=== PATIENT | male | born 1975 | race Caucasian/White ===

== ENCOUNTER → 2020-06-05 15:21 | Outpatient (BNVA) | payer SELFPAY | PROVIDERS: Visit Provider Nurse Practitioner Family | DX: L01.00 Impetigo, unspecified (principal); L23.7 Allergic contact dermatitis due to plants, except food | CPT/HCPCS: 87070; 87077; 87186 ==

== ENCOUNTER 2024-05-08 14:36 | Outpatient (CLI) | payer SELFPAY ==
--- NOTE | 2024-05-08 14:42 | XR_ITS ---
WS: [id number] XR hip LT 2-3V wo/w pel* [id number] REASON FOR EXAM: Left hip pain FINDINGS: No acute fracture or focal bone lesion. Old healed fracture of the left superior and inferior pubic r amus. Plate and femoral neck nail and screw fixation of remote intertrochanteric fracture. Significant deformity of the femoral head and neck. There is essentially upap-ma-qjnl articulation in the superior hip joint with extensive sclerosis and cystic change in the acetabulum and femoral head. Large osteophytes of the femoral head. No soft tissue abnormality. XR/XR hip LT 2-3V wo/w pel* [id number] IMPRESSION: Remote intertrochanteric fracture with fixation Severe osteoarthritis of the left hip with [id number] articulation.
== END 2024-05-08 14:37 | disposition home or self-care (01) ==
PROVIDERS: Visit Provider Nurse Practitioner Family
DX: M16.0 Bilateral primary osteoarthritis of hip (principal); Z96.698 Presence of other orthopedic joint implants
CPT/HCPCS: 73502

== ENCOUNTER → 2024-05-21 13:56 | Outpatient (BNVA) | payer SELFPAY | PROVIDERS: Visit Provider Nurse Practitioner | DX: S72.002D Fracture of unspecified part of neck of left femur, subsequent encounter for closed fracture with routine healing (principal); X58.XXXD Exposure to other specified factors, subsequent encounter; M16.12 Unilateral primary osteoarthritis, left hip; M85.652 Other cyst of bone, left thigh; M25.752 Osteophyte, left hip | CPT/HCPCS: 73502 ==

== ENCOUNTER → 2024-05-30 09:35 | Outpatient (BNVA) | payer BC, MEDICAID, SELFPAY | PROVIDERS: Visit Provider Family Medicine | DX: Z01.818 Encounter for other preprocedural examination (principal) | CPT/HCPCS: 80053; 81003; 85025 ==

== ENCOUNTER 2024-06-05 13:21 | Observation (INO) | payer BC, MEDICAID, SELFPAY ==
[2024-06-05] VITALS (13 sets, daily range): BP systolic 116–152; BP diastolic 83–100; PULSE 95–116; RESP 16–18; TEMP 35.8–36.7; O2SAT 90–98; BMI 30.8
--- NOTE | 2024-06-05 06:41 | P.ANESASSM_ITS ---
Pre-Anesthetic Assessment Height/Weight: Height 1.78 m Weight 97.522 kg Operation Date: 06/05/24 08:15 Proposed Procedures p Hip Arthroplasty Revision Total Hip Arthroplasty Revision(Left) - Candice Marcus MD s Hardware Removal Hip Screw and plate(Left) - Candice Marcus MD Familial anesthetic complications: None Was Beta Renata taken within 24 hours: N/A Was Clonidine taken within 24 hours: N/A Last intake: > 8 hrs Social No alcohol and No tobacco Exam alert, oriented x 3, clear to auscultation bilaterally and regular rate & rhythm Airway Mallampati: Class II Dentition: other (some pulled) CV/HEM denies CP, SOB, MARTINEZ, syncope States able to achieve > 4 METS w/ out cardiac symptoms Anesthetic Plan ASA status: 2 Anesthesia: Regional (specify below) Risk of > 500 ml blood loss (7ml/kg in children): No Medications/Allergies Home Medications Medication Instructions Recorded Confirmed Last Taken Type No Known Home Medications 06/01/24 06/01/24 Unknown History Allergies Allergy/AdvReac Type Severity Reaction Status Date / Time No Known Allergies Allergy Verified 05/30/24 09:26 [facility] Anesthesia Medical History Avascular necrosis of bone of left hip Fracture of femoral neck, left, closed Patient underwent open reduction internal fixation in his mid 20s with 3 cannulated screw placement. Patient states that this did not heal well and when he was approximately 28 years old cannulated screws were removed and Synthes blade plate and screws were placed. Post-traumatic osteoarthritis of left hip Social History Smoking and tobacco/nicotine status: never used tobacco/nicotine Alcohol intake: never Substance/Drug Use: current Substance/Drug use frequency: few times a week Data Anesthesia Cardiac Studies: No Data to Display
[2024-06-05] MEDS: sodium chloride 0.9% 1,000 ML 30 ML IV (06:53)
[2024-06-05] MEDS: ondansetron 2 mg/ML SDV 2 mL 4 MG IVP (06:55)
[2024-06-05] MEDS: acetaminophen 1,000 MG/100 ML PIGGYBACK 400 MG IV ×3 (06:57→22:47)
[2024-06-05] MEDS: CELEcoxib 200 mg Capsule 400 MG PO (07:02)
[2024-06-05] MEDS: gabapentin 300 mg Capsule PO (07:02)
--- NOTE | 2024-06-05 07:02 | P.HPUD_ITS ---
Surgery/Procedure H&P Update DATE OF PROCEDURE: June 05, 2024 DATE H&P PERFORMED: 05/30/24 H&P UPDATE INFORMATION: I have reviewed H&P completed within last 30 days, I have examined patient prior to procedure, No changes to prior documentation and H&P is in [facility] EMR on date indicated PLANNED PROCEDURE: Operation Date: 06/05/24 08:15 Proposed Procedures p Hip Arthroplasty Revision Total Hip Arthroplasty Revision(Left) - Candice Marcus MD s Hardware Removal Hip Screw and plate(Left) - Candice Marcus MD Related Problem List Diagnoses (1) Fracture of femoral neck, left, closed: Qualifiers: Encounter type: sequela Qualified Code(s): S72.002S - Fracture of unspecified part of neck of left femur, sequela (2) Avascular necrosis of bone of left hip: (3) Post-traumatic osteoarthritis of left hip:
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
[2024-06-05] MEDS: ceFAZolin 2,000 mg SDV 2000 MG IVP ×3 (09:15→22:44)
[2024-06-05] MEDS: tranexamic acid 1,000 mg/10mL SDV 1000 MG IV (09:45)
[2024-06-05] MEDS: ceFAZolin 1,000 mg SDV 1000 MG IRRIGATION (10:00)
[2024-06-05] MEDS: vancomycin 1,000 MG SDV 1000 MG XX (10:00)
--- NOTE | 2024-06-05 13:39 | XRR_ITS ---
PROCEDURE INFORMATION: Exam: XR Pelvis Exam date and time: 06/05/2024 1:43 PM Age: 49 years old Clinical indication: Device placement; Other: Katelyn; Prior surgery; Surgery date: Post-operative (0-2 days); Additional info: S/P katelyn, low ap pelvis TECHNIQUE: Imaging protocol: Radiologic exam of the pelvis. Views: 1 or 2 view. COMPARISON: CR XR hip LT 2-3V wo/w pel* [id number] 05/21/2024 2:03 PM FINDINGS: Bones/joints: Complete left hip arthroplasty in adequate anatomic alignment. No evidence of hardware complications. Specifically, no evidence for hardware loosening or periprosthetic fractures. Mild osteoarthritis of the right hip joint. No acutely displaced fractures. No joint dislocation. No aggressive osseous lesions. Soft tissues: Soft tissue swelling and soft tissue emphysema. XR/XR pelvis 1-2V* [id number] IMPRESSION: 1. Complete left hip arthroplasty in adequate anatomic alignment. 2. Expected postsurgical soft tissue changes.
--- NOTE | 2024-06-05 13:49 | ANE.PACU2 ---
Inpatient post-anesthesia follow up: Airway intact: Yes Vital signs: Temperature 97.1 F Pulse Rate 109 Respiratory Rate 18 Blood Pressure 116/90 Pulse Oximetry 90 Oxygen Delivery Me thod Room Air Oxygen Flow Rate 8 Fraction of Inspir ed Oxygen Hydration adequate: Yes Nausea and vomiting: No Pain level: 1 Mental status: Baseline
[2024-06-05] MEDS: lactated ringers 1,000 ML 100 ML IV (15:01)
[2024-06-05] MEDS: calcium carbonate 500 mg Chew Tablet 1000 MG PO (17:33)
[2024-06-05] MEDS: sennosides-docusate Tablet 2 TAB PO (17:33)
[2024-06-05] MEDS: oxyCODONE 5 mg IR Tab/Cap PO ×2 (17:34→22:45)
[2024-06-05] MEDS: tranexamic acid 1,000 MG/100 ML PREMIX 600 MG IV (17:34)
[2024-06-05] MEDS: chlorhexidine gluconate 0.12% Btl 473 mL 30 ML MUCOUS MEM ×2 (17:34→22:46)
[2024-06-05] MEDS: iron polysaccharide complex 150 mg Capsule PO (17:34)
[2024-06-05] MEDS: mupirocin oint 22 gm 1 APPLIC NASAL (17:34)
[2024-06-05] MEDS: CELEcoxib 200 mg Capsule PO (22:46)
[2024-06-06] VITALS: BP 135/83; PULSE 106; RESP 16; TEMP 37.2; O2SAT 96
[2024-06-06] MEDS: lactated ringers 1,000 ML 100 ML IV ×2 (01:00→09:56)
[2024-06-06 04:00] VITALS: BP 149/88; PULSE 103; RESP 17; TEMP 36.9; O2SAT 96
[2024-06-06 04:34] VITALS: RESP 16; O2SAT 96
[2024-06-06] MEDS: oxyCODONE 5 mg IR Tab/Cap PO (04:34)
[2024-06-06 06:10] LABS: Basophils % 0.2 %; Eosinophils % 0.2 %; Hematocrit 32.1 % (37-53); Lymphocytes # 2.2 10^3/uL (0.8-4.8); Lymphocytes % 18.5 %; Mean Corpuscular HGB Conc 32.1 g/dL (30-55); Mean Corpuscular Hemoglobin 28.8 pg (27-33); Mean Corpuscular Volume 89.7 fl (82-101); Mean Platelet Volume 9.8 fL (7.4-10.4); Monocytes # 1.4 10^3/uL (0.2-0.9); Monocytes % 12.2 %; Neutrophils # 8.04 10^3/uL (1.8-7.7); Neutrophils % 68.4 %; Nucleated Red Blood Cells % 0 %; Platelet Count 395 10^3/cmm (157-399); Red Blood Count 3.58 10^6/uL (3.85-5.65); Red Cell Distribution Width 12.9 % (12.1-15.1); White Blood Count 11.76 10^3/uL (3.29-11.43)
[2024-06-06 06:28] LABS: Anion Gap 13.2 (5-19); Blood Urea Nitrogen 12 mg/dL (6-20); Calcium 8.1 mg/dL (8.5-10.5); Carbon Dioxide 25 mmol/L (22-29); Chloride 105 mmol/L (98-107); Creatinine Clr Calc Pharmacy 124.3394; Glomerular Filtration Rate 102.3 mL/min (90-130); Glucose 107 mg/dL (65-115); Osmolality Calculated 288 mOsm/kg (285-295); Potassium 4.2 mmol/L (3.5-5.1); Sodium 139 mmol/L (136-145)
[2024-06-06] MEDS: ceFAZolin 2,000 mg SDV 2000 MG IVP (06:31)
[2024-06-06] MEDS: acetaminophen 1,000 MG/100 ML PIGGYBACK 400 MG IV (06:34)
[2024-06-06] MEDS: ondansetron 2 mg/ML SDV 2 mL 4 MG IVP (07:18)
[2024-06-06 07:22] VITALS: BP 142/92; PULSE 86; RESP 17; TEMP 36.5; O2SAT 97
[2024-06-06] MEDS: mupirocin oint 22 gm 1 APPLIC NASAL (08:15)
[2024-06-06] MEDS: cholecalciferol (vitamin D3) 1,000 unit Tablet 1000 UNIT PO (08:15)
[2024-06-06] MEDS: aspirin 325 mg EC Tablet PO (08:15)
[2024-06-06] MEDS: iron polysaccharide complex 150 mg Capsule PO (08:15)
[2024-06-06] MEDS: multivitamin therapeutic Tablet 1 TAB PO (08:15)
[2024-06-06] MEDS: chlorhexidine gluconate 0.12% Btl 473 mL 30 ML MUCOUS MEM (08:16)
--- NOTE | 2024-06-06 08:52 | PC.CHAP ---
Pastoral Care Encounter/Spiritual Assessment Type of Contact [] Declined manager motor visit [] Patient/Family/Request visit [] Outpatient visit [] Follow-up visit [] Physician referral [] Code/Alert [] Routine visit [] Staff referral [] Actively dying [] Patient sleeping [] Family support [] [] Out of room [] Palliative care [] [x] Receiving care in room [] Pre-surgical visit [] Trauma [] Long length of stay [] ICU visit [] Other: Relational/Emotional Strength [] Patient feels connected with others/family/visitors/staff [] Distress [] Loneliness/isolation [] Abandonment Spirituality of Patient [] Person of Georgie [] Attends Yazdanism of their Georgie [] Believes in Prayer [] Reads Bible or Quaker materials [] There are Spiritual issues to be addressed Computer Network And Systems Engineer Interventions [] Prayer [] Active listening [] Non-anxious presence [] Spiritual/emotional support [] Crisis/trauma care [] Spiritual counseling [] Bereavement support [] Provided bereavement packet [] Provided Bible/devotional materials [] Provided toy/stuffed animal, coloring book to patient or family member [] Provided Communion [] Anointing/[place] [] Salvation [] Completed spiritual assessment [] Other: Impact on Illness or Injury [] Angry [] Fearful [] Anxious [] Often cries [] Exhaustion [] Unable to work [] Unable to attend faith [] Unable to walk/stand [] Unable to read [] Unable to drive [] Unable to eat/drink [] Unable to sleep [] Unable to be with family [] Patient intubated [] Other: Summary Time spent with patient
[2024-06-06] MEDS: CELEcoxib 200 mg Capsule PO (09:56)
[2024-06-06 11:46] VITALS: BP 121/72; PULSE 106; RESP 17; TEMP 36.5; O2SAT 97
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
== END 2024-06-06 14:53 | disposition home health service (06) ==
LOC: MEDSURG 13:21
PROVIDERS: Admitting Provider Specialist; Visit Provider Specialist
PROC: (CPT 27134; principal; 2024-06-05 08:05)
PROC: (CPT 20680; 2024-06-05 08:05)
DX: M16.12 Unilateral primary osteoarthritis, left hip (principal); T84.89XA Other specified complication of internal orthopedic prosthetic devices, implants and grafts, initial encounter; S72.002S Fracture of unspecified part of neck of left femur, sequela; X58.XXXS Exposure to other specified factors, sequela; M87.052 Idiopathic aseptic necrosis of left femur
CPT/HCPCS: 27134; 36415; 51702; 72170; 80048; 85025; 87070; 87075; 87176; 87205; 88304; 88311; 97110; 97116; 97161; 97165; C1713; C1776; G0378; J0131; J0690; J1100; J1170; J2371; J2405; J2704; J3010; J3370; J3490; J7030; J7120

== ENCOUNTER → 2024-06-20 10:59 | Outpatient (BNVA) | payer BC, MEDICAID, SELFPAY | PROVIDERS: Visit Provider Nurse Practitioner | DX: Z96.642 Presence of left artificial hip joint (principal) | CPT/HCPCS: 73502 ==

== ENCOUNTER → 2024-07-18 11:14 | Outpatient (BNVA) | payer BC, MEDICAID, SELFPAY | PROVIDERS: Visit Provider Nurse Practitioner | DX: Z96.642 Presence of left artificial hip joint (principal) | CPT/HCPCS: 73502 ==

== ENCOUNTER → 2024-09-19 10:01 | Outpatient (BNVA) | payer BC, MEDICAID, SELFPAY | PROVIDERS: Visit Provider Nurse Practitioner | DX: M87.052 Idiopathic aseptic necrosis of left femur; M16.52 Unilateral post-traumatic osteoarthritis, left hip; R03.0 Elevated blood-pressure reading, without diagnosis of hypertension; Z96.642 Presence of left artificial hip joint | CPT/HCPCS: 73502 ==

== ENCOUNTER → 2025-06-05 10:02 | Outpatient (BNVA) | payer BC, MEDICAID, SELFPAY | PROVIDERS: Visit Provider Nurse Practitioner | DX: Z96.649 Presence of unspecified artificial hip joint (principal) | CPT/HCPCS: 73502 ==